=== PATIENT | female | born 1975 | race Two or more races ===

== ENCOUNTER 2017-04-16 12:41 | Emergency (ER) | payer OTHER ==
[2017-04-16 12:59] VITALS: BP 104/75; PULSE 97; TEMP 98.7; BMI 37.8
--- NOTE | 2017-04-16 15:10 | PDOC ---
History of Present Illness - General Chief Complaint: Injury Stated Complaint: LACERATION Time Seen by Provider: 04/16/17 13:38 History Source: Patient Exam Limitations: No Limitations - History of Present Illness Initial Comments: 04/16/17 15:10 Chief complaint: Laceration to the left proximal thumb History of present illness: Patient is a 41-year-old female with no significant medical history here today with a laceration to her left proximal thumb volar aspect. Patient is not up-to-date with tetanus. Patient denies any numbness of thumb or hand or any decreased range of motion of thumb. 04/16/17 15:17 Occurred: reports: just prior to arrival Severity: reports: moderate Pain Location: reports: upper extremity (left proximal volar thumb) Method of Injury: Yes: other (laceration ) Modifying Factors: improves with: None Loss of Consciousness: no loss of consciousness Associated Symptoms (Fall): denies symptoms Past History - Past Medical History Allergies/Adverse Reactions: Allergies Allergy/AdvReac Type Severity Reaction Status Date / Time No Known Allergies Allergy Verified 04/16/17 12:59 Home Medications: Ambulatory Orders NK [No Known Home Medication] 04/16/17 Other medical history: denies - Suicide/Smoking/Psychosocial Hx Smoking History: Current every day smoker Have you smoked in the past 12 months: Yes Number of Cigarettes Smoked Daily: 20 Information on smoking cessation initiated: No Hx Alcohol Use: No Drug/Substance Use Hx: No Substance Use Type: None Review of Systems - Review of Systems Able to Perform ROS?: Yes Constitutional: No: Symptoms Reported HEENTM: No: Symptoms Reported Respiratory: No: Symptoms reported Cardiac (ROS): No: Symptoms Reported ABD/GI: No: Symptoms Reported : No: Symptoms Reported Musculoskeletal: No: Symptoms Reported Integumentary: Yes: Other (laceration left proximal volar thumb superfical ) Neurological: No: Symptoms reported *Physical Exam - Vital Signs Last Vital Signs Temp Pulse Resp BP Pulse Ox 98.7 F 97 H 20 104/75 98 04/16/17 12:56 04/16/17 12:56 04/16/17 12:56 04/16/17 12:56 04/16/17 12:56 - Physical Exam General Appearance: Yes: Appropriately Dressed Comments:: 04/16/17 15:12 radial pulse + 4 left Extremity: positive: Normal Capillary Refill, Normal Range of Motion (left thumb ), Tender (left thumb ). negative: Normal Inspection (left volar proximal thumb laceration) Integumentary: positive: Other (left thumb proximal volar superfical laceration linear approx 3 cm x 0-.25 cm ) Neurologic: positive: Alert, Normal Response, Respond to painful stimul (left thumb ), Responsive. negative: Numbness, Sensory Deficit (left thumb ) Procedures - Consent Consent obtained: From Patient - Laceration/Wound Repair Left Proximal Volar Finger 1st digit Wound Length: 2.6 to 5.0 cm Wound Explored: clean Wound's Depth, Shape: superficial Irrigated w/ Saline: Yes Betadine Prep: Yes Anesthesia: 1% Lidocaine Amount of Anesthetic (ccs): 5 Wound Repaired With: Sutures Suture Size/Type: 5:0 Number of Sutures: 8 Sterile Dressing Applied: Yes Splint Applied: No Medical Decision Making - Medical Decision Making 04/16/17 15:17 Patient is a 41-year-old female with no significant medical history here today with a laceration to her left proximal thumb volar aspect. Patient is not up-to- date with tetanus. Patient denies any numbness of thumb or hand or any decreased range of motion of thumb. left thumb laceration PLAN: TDAP 0.5 ml IM 8 interrupted sutures applied xray left hand no danica abnormalities note d 04/16/17 15:24 *DC/Admit/Observation/Transfer Diagnosis at time of Disposition: Laceration - Referrals Referrals: Sonu Maddox MD [Primary Care Provider] - - Patient Instructions Additional Instructions: Today your tetanus diphtheria and pertussis vaccine was updated Cleanse wound twice daily with antibacterial soap and water pat dry and apply a tiny amount of bacitracin ointment cover with dressing except at night when sleeping let air out Return here in 10-14 days for suture removal or sooner if any redness around wound or swelling or any fever Patient voiced understanding of discharge instructions and all questions were answered Patient voiced understanding of discharge instructions and all questions were answered stalin mayykii breanna el marahum basbrad smith 'illa fi allayl e[place] alnuw [facility] [place] deni bayron traceya fi -14 juan j lockwood'rodrigozalachris khiatat 'aw samariajilafly 'iidha con 'ayu kota [facility] 'aw tawarum 'aw 'aya domoaa rhianna beasley'asyimyron beasley'asyila
[2017-04-16] MEDS ORDERED: DIPHTH,PERTUSS(ACELL),TET 0.5 ML DISP.SYRIN IM ONE (15:11)
== END 2017-04-16 15:26 | disposition home or self-care (01) ==
LOC: JERFT 12:41
PROC: 0HQGXZZ Repair Left Hand Skin, External Approach (ICD-10-PCS; principal; 2017-04-16)
DX: S61.012A Laceration without foreign body of left thumb without damage to nail, initial encounter (principal); W26.0XXA Contact with knife, initial encounter; Y93.89 Activity, other specified; Y92.89 Other specified places as the place of occurrence of the external cause; Y99.8 Other external cause status
CPT/HCPCS: 73130-TC-LT; 90715; 99281-25

== ENCOUNTER 2017-07-27 10:42 | Day surgery (SDC) | payer OTHER ==
[2017-07-24 13:59] VITALS: BMI 37.0
[2017-07-27 11:12] VITALS: TEMP 97.8
[2017-07-27] MEDS ORDERED: MIDAZOLAM HCL 2 MG/2 ML SINGLE DOSE VIAL ONE (14:13)
[2017-07-27] MEDS ORDERED: LEVOFLOXACIN 500 MG IVPB 500 MG/100 ML BAG IVPB ONE (14:15)
[2017-07-27] MEDS ORDERED: LEVOFLOXACIN 500 MG PREMIX BAG IVPB ONE (14:28)
[2017-07-27 16:55] VITALS: BP 105/56; PULSE 72
--- NOTE | 2017-07-27 17:45 | OP ---
Operative Note - Note: Operative Date: 07/27/17 Pre-Operative Diagnosis: right renal stone Operation: right eswl Post-Operative Diagnosis: Same as Pre-op Surgeon: Kamran Don Anesthesia: Fractional
== END 2017-07-27 17:00 | disposition home or self-care (01) ==
LOC: JASU-SURG 10:42
PROVIDERS: ATTEND Urology
PROC: 0TF3XZZ Fragmentation in Right Kidney Pelvis, External Approach (ICD-10-PCS; principal; 2017-07-27 12:30)
DX: N20.0 Calculus of kidney (principal)
CPT/HCPCS: 82962